=== PATIENT | male | born 1975 | race Caucasian/White ===

== ENCOUNTER 2021-10-25 11:41 | Emergency (ER) | payer MEDICAID, SELFPAY ==
--- NOTE | 2021-10-25 11:45 | RT.EKG_ITS ---
APPROVED REPORT Exam: Resting ECG Reason for Exam: chest pain Patient Location: E HR:59 bpm ECG Measurements Heart Rate 59 AXIS [place] 125 P 28 QRSd 90 QRS 63 QT 405 T 42 QTc 402 Conclusion Sinus bradycardia...rate< 60
[2021-10-25 11:51] VITALS: BP 163/80; PULSE 88; TEMP 36.6; O2SAT 99
--- NOTE | 2021-10-25 13:04 | ED.GENADUL_ITS ---
Discharge Plan Disposition Patient Disposition: HOME Condition: Improving Discharge Details Chief Complaint: Chest Pain Clinical Impression: Hypertension, Anxiety about health Primary Care Provider: Unknown,Unknown ED Provider: Shaan Smith Home Meds and New Rx's Prescriptions: No Action No Known Home Meds Discharge Instructions Instructions: DASH Eating Plan (ED), Hypertension (ED) Additional Instructions: We have asked our care management team to arrange a follow-up for you in primary care for recheck and to assess care. We have asked that the appointment be made towards the end of your workday. Home to rest. See enclosed instructions regarding the Dash diet and attempt to limit salt in the diet as well as begin and continue your stress reduction r outines. Your work-up today in the emergency [facility] included a complete blood count, comprehensive metabolic panel, and troponin. I have included copies of there is results for you and your records below. WBC 9.55 RBC 5.54 Hgb 15.9 Hct 47.1 MCV 85 MCH 28.7 MCHC 33.8 RDW 11.9 Plt Count 172 Sodium 139 Potassium 3.8 Chloride 105 Carbon Dioxide 25.6 Anion Gap 8.4 BUN 14 Creatinine 1.0 Estimated GFR/1.73 m2 >= 60.00 Glucose 125 H Calcium 8.8 Magnesium 2.0 Total Bilirubin 0.6 AST 19 ALT 39 Alkaline Phos 68 Troponin I < 50 Total Protein 7.8 Albumin 3.8 Medical Decision Making 46-year-old male who states she had a history of hypertension required long-term management while he was in [facility] for greater than 10 years. Now reports intermittent episodes of elevated blood pressure associated with stress over the past few days time. 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 This made him anxious and he sought evaluation in the ER. He arrives ER low pressure 163/80, otherwise unremarkable vital signs. The patient is quite anxious initially and states he does not want to have further work-up performed. Patient did allow phlebotomy and screening labs including troponin were obtained. The patient's labs are reassuring including a negative troponin. We will arrange outpatient follow-up for him and I will ask him to work on managing blood pressure in the meantime. He is given information regarding the Dash diet as well as stress reduction techniques for home. He is stable and appropriate to discharge this time. Lab Data Lab results reviewed: Yes I reviewed the patient's lab results. Labs: Laboratory Results - last 24 hr 10/25/21 10/25/21 13:16 13:16 WBC 9.55 RBC 5.54 Hgb 15.9 Hct 47.1 MCV 85 MCH 28.7 MCHC 33.8 RDW 11.9 Plt Count 172 MPV 11.1 H Immature Gran % 0.3 Neutrophils % 65.1 Lymphocytes % 27.7 Monocytes % 5.8 Eosinophils % 0.8 Basophils % 0.3 Nucleated RBC % 0.0 Absolute Neutrophils 6.21 Absolute Lymphocytes 2.65 Absolute Monocytes 0.55 Absolute Eosinophils 0.08 Absolute Basophils 0.03 Sodium 139 Potassium 3.8 Chloride 105 Carbon Dioxide 25.6 Anion Gap 8.4 BUN 14 Creatinine 1.0 Estimated GFR/1.73 m2 >= 60.00 Glucose 125 H Calcium 8.8 Magnesium 2.0 Total Bilirubin 0.6 AST 19 ALT 39 Alkaline Phosphatase 68 Troponin I < 50 Total Protein 7.8 Albumin 3.8 HPI General Mode of arrival: ambulatory . Date/Time Provider Initiated Documentation: 10/25/21 11:58 . Limitations to Documentation: no limitations . Information obtained by: patient . History of Present Illness 46 year old M presents to the emergency department with the chief complaint of Elevated blood pressure, chest tightness, described as moderate, Quality is described as dull, and is localized to the chest. Patient reports no radiation. Patient started experiencing this hour(s) and it has been constant. No relieving factors improve symptom(s), No exacerbating factors reported . Patient notes chest pain; denies shortness of breath and syncope. Patient did receive the following treatments prior to arrival, none Related Data Home Medications Medication Instructions Recorded Confirmed Unknown [No Known Home Meds] 10/25/21 10/25/21 Allergies Allergy/AdvReac Type Severity Reaction Status Date / Time codeine AdvReac Unknown Unverified 10/25/21 11:59 General Stated Complaint: Chest Pain FATMATA: 2 Review of Systems Narrative: 6 systems reviewed and otherwise negative PFSH All Active Problems (Updated 10/25/21 @ 13:47 by Shaan Smith MD) Hypertension (Chronic) Anxiety about health (Acute) Social History Smoking/Tobacco Use Status: Never Smoking risk assessment performed?: Yes Alcohol Intake: never Drug use: Daily Substance use type: marijuana Do you feel safe at home: Yes Do you feel safe in your relationship?: Yes Exam Narrative Exam Narrative: GEN: awake, alert, oriented 3. Pleasant, well groomed, interactive. HEAD: Normocephalic, atraumatic ENT: Mucous membranes moist, oropharynx unremarkable, External ear exam unremarkable EYES: PERRL, EOMI NECK: Full ROM, no TARIK, no menigismus CHEST/RESP: Nontender, clear to auscultation bilateral, no wheeze/rhonchi/rales CARDIOVASCULAR: RRR, no murmur, rub mike. 2+ Rad pulse bilateral ABDOMEN: Soft, nontender, no mass. +Bowel sounds EXT: Full ROM, no edema, no rash Neuro: Grossly normal neurologic exam, conversant, interactive. Psych: Speech fluent, thoughts congruent, affect anxious Course Vital Signs Vital signs: Vital Signs Temperature 36.6 C 10/25/21 11:51 Pulse 88 10/25/21 11:51 Blood Pressure 163/80 H 10/25/21 11:51 Pulse Oximetry 99 10/25/21 11:51 Temperature 36.6 C 10/25/21 11:51 Temperature Source Skin 10/25/21 11:51 Pulse 88 10/25/21 11:51 Respiratory Effort 10/25/21 12:04 Respiratory Depth Normal 10/25/21 12:00 Respiratory Pattern Normal 10/25/21 12:00 Blood Pressure 163/80 H 10/25/21 11:51 Blood Pressure Position Sitting 10/25/21 11:51 Pulse Oximetry 99 10/25/21 11:51 Oxygen Delivery Method Room Air 10/25/21 11:51 Oxygen Flow Rate 0 10/25/21 11:51 Pain Level 5 10/25/21 11:51 Comment 10/25/21 11:51
--- NOTE | 2021-10-25 13:21 | NUR.NOTE ---
Nursing Note: Referral given to Care Management for high blood pressure in 1 week. Would like end of working day appt if possible. Marah Reynolds
[2021-10-25 13:26] LABS: Abs Immature Grans 0.03 10^3/uL (0.0-0.06); Absolute Basophil Count 0.03 10^3/uL (0.0-0.2); Absolute Eosinophil Count 0.08 10^3/uL (0.0-0.7); Absolute Lymphocyte Count 2.65 10^3/uL (1.2-3.4); Absolute Monocyte Count 0.55 10^3/uL (0.1-0.8); Absolute Neutrophil Count 6.21 10^3/uL (1.2-6.7); Basophils % 0.3; Eosinophils % 0.8; HCT 47.1 % (40.0-50.0); HGB 15.9 g/dL (13.5-17.5); Immature Grans % 0.3; Lymphocytes % 27.7; MCH 28.7 pg (27.0-33.0); MCHC 33.8 % (32.0-36.0); MCV 85 fL (80-95); MPV 11.1 fL (8.0-11.0); Monocytes % 5.8; Neutrophils % 65.1; Platelet Count 172 10^3/uL (130-400); RBC 5.54 10^6/uL (4.36-5.78); RDW 11.9 % (11.8-14.1); RDW-SD 37.1 fL; WBC 9.55 10^3/uL (4.4-10.8)
--- NOTE | 2021-10-25 13:26 | NUR.NOTE ---
pt refused IV access but agreed to straight stick blood draw Nursing Note:
[2021-10-25 13:41] LABS: ALT 39 U/L (16-63); AST 19 U/L (15-37); Albumin 3.8 g/dL (3.4-5.0); Alkaline Phosphatase 68 U/L (46-116); Anion Gap 8.4 mmol/L (3-11); BUN 14 mg/dL (7-18); Bilirubin, Total 0.6 mg/dL (0.2-1.0); CO2 25.6 mmol/L (21.0-32.0); Calcium 8.8 mg/dL (8.5-10.1); Chloride 105 mmol/L (98-107); Glucose 125 mg/dL (74-106); Potassium 3.8 mmol/L (3.5-5.1); Sodium 139 mmol/L (136-145); Total Protein 7.8 g/dL (6.4-8.2); Troponin I < 50 ng/L (<or=60)
[2021-10-25 14:04] VITALS: BP 150/94; PULSE 69; RESP 16; TEMP 37.1; O2SAT 98
== END 2021-10-25 14:09 | disposition home or self-care (01) ==
PROVIDERS: Emergency Provider Emergency Medicine
DX: I10 Essential (primary) hypertension (principal); F41.9 Anxiety disorder, unspecified; R07.89 Other chest pain
CPT/HCPCS: 36415; 80053; 93005; 99283; 83735; 84484; 85025; 93010

== ENCOUNTER 2021-11-13 20:14 | Emergency (ER) | payer MEDICAID, SELFPAY ==
--- NOTE | 2021-11-13 20:15 | RT.EKG_ITS ---
APPROVED REPORT Exam: Resting ECG Reason for Exam: htn confusion Patient Location: E HR:79 bpm ECG Measurements Heart Rate 79 AXIS AR 130 P 27 QRSd 88 QRS 62 QT 371 T 36 QTc 424 Conclusion Sinus rhythm...normal P axis, V-rate 60- 99 sinus rhythm, normal axis, normal intervals, non ischemic
[2021-11-13 20:17] VITALS: BP 163/88; PULSE 82; RESP 14; TEMP 36.8; O2SAT 99
[2021-11-13 20:56] VITALS: BP 149/95; PULSE 86; O2SAT 96
--- NOTE | 2021-11-13 21:06 | ED.GENADUL_ITS ---
Discharge Plan Disposition Patient Disposition: HOME Condition: Stable Discharge Details Clinical Impression: Elevated blood pressure reading Primary Care Provider: Unknown,Unknown ED Provider: Merline Chow Home Meds and New Rx's Prescriptions: No Action No Known Home Meds Discharge Instructions Additional Instructions: Follow-up with your new doctor at your scheduled appointment you declined any additional laboratory evaluation today, I do recommend close outpatient reassessment Please return should you have new or worsening complaint Referrals: John Walker DO [OSTEOPATHIC DOCTOR] - 2 days Discharge Data Discharge Date/Time-TO BE ENTERED AT DEPARTURE: 11/13/21 21:18 Medical Decision Making Patient appears well, his EKG does not show evidence of acute abnormality Reviewed his diagnostic exam from 2 weeks prior to his arrival today and I do not see evidence of acute abnormality He states his presentation was quite He declined any additional diagnostic evaluation at this time. I did recommend blood work and patient again has declined I do not see any obvious evidence of central neurological process My suspicion for cardiac etiology is low although I did recommend troponin and labs Patient is fully alert, oriented, of decisional capacity He declines any additional intervention He has an appointment scheduled with new PCP on Sunday of this week, he is encouraged to keep this assessment Blood pressure at time of reassessment is 149/95 and patient has a nonfocal neurological exam. ECG Data Prior ECG tracings: available for review HPI General Date/Time Provider Initiated Documentation: 11/13/21 20:27 . HPI Narrative: This 46-year-old male with history of hypertension and anxiety presents with report of feeling tired and lightheaded. He states that he checked his blood pressure and it was elevated at 190/103, he checked it again and it was 185/107 and became concerned. He states he became very anxious and he felt even more tired when he presents here. He denies any chest pain or shortness of breath. He denies any strength or sensation change. He denies fever or chills. He denies any headache or vision change aside from some mild blurred vision. He denies any weakness or dizziness. He denies any complaints. He states he been on antihypertensives but in the past they have been ineffective., PCP on Sunday of this upcoming week reportedly. Denies any calf pain or swelling, recent flights, surgeries, or long drives. Smokes marijuana daily denies any tobacco or alcohol use. Denies any illicit drug use. Related Data Home Medications Medication Instructions Recorded Confirmed Unknown [No Known Home Meds] 10/25/21 10/25/21 Allergies Allergy/AdvReac Type Severity Reaction Status Date / Time codeine AdvReac Unknown Unverified 11/13/21 20:27 General Stated Complaint: GenMedical FATMATA: 3 Review of Systems All systems reviewed & are unremarkable except as noted in HPI and below PFSH All Active Problems (Updated 11/13/21 @ 21:08 by BLAIR Montoya) Hypertension (Chronic) Anxiety about health (Acute) Elevated blood pressure reading (Acute) Social History Smoking/Tobacco Use Status: Never Smoking risk assessment performed?: Yes Alcohol Intake: never Drug use: Daily Substance use type: marijuana Do you feel safe at home: Yes Do you feel safe in your relationship?: Yes Exam Const General: cooperative, comfortable and no acute distress HENMT Head: normal to inspection Mouth: oral mucosae normal Eyes Pupils: PERRL Resp Effort & Inspection: normal respiratory effort Auscultation: clear to auscultation bilaterally Cardio Rate: regular rate Rhythm: regular rhythm GI Inspection: normal to inspection Skin General skin exam: no rashes or lesions noted Neuro General: patient alert and patient oriented x3 Cranial Nerves: CN's II-XI intact bilaterally and tongue midline Cognition: normal cognition Speech: speech normal Gait: normal gait Motor: strength 5/5 throughout Sensory Exam: no sensory deficits noted Course Vital Signs Vital signs: Vital Signs Temperature 36.8 C 11/13/21 20:17 Pulse 82 11/13/21 20:17 Respiratory Rate 14 11/13/21 20:17 Blood Pressure 163/88 H 11/13/21 20:17 Pulse Oximetry 99 11/13/21 20:17 Temperature 36.8 C 11/13/21 20:17 Temperature Source Temporal Artery Scan 11/13/21 20:17 Pulse 86 11/13/21 20:56 Respiratory Rate 14 11/13/21 20:17 Respiratory Effort Non-Labored 11/13/21 20:32 Respiratory Depth Normal 11/13/21 20:32 Respiratory Pattern Normal 11/13/21 20:32 Blood Pressure 149/95 H 11/13/21 20:56 Blood Pressure Mean 108 11/13/21 20:56 Blood Pressure Position Sitting 11/13/21 20:17 Pulse Oximetry 96 11/13/21 20:56 Oxygen Delivery Method Room Air 11/13/21 20:17 Oxygen Flow Rate 0 11/13/21 20:17
== END 2021-11-13 21:18 | disposition home or self-care (01) ==
PROVIDERS: Emergency Provider Physician Assistant
DX: I10 Essential (primary) hypertension (principal); R41.0 Disorientation, unspecified
CPT/HCPCS: 93005; 99283; 93010

== ENCOUNTER 2022-08-31 15:14 | Emergency (ER) | payer OTHER, SELFPAY ==
[2022-08-31 15:15] VITALS: BP 158/102; PULSE 93; RESP 20; TEMP 36.6; O2SAT 97
--- NOTE | 2022-08-31 15:30 | DI.RAD_ITS ---
Exam(s) XR SHOULDER RT COMPLETE 2+V EXAM: XR SHOULDER RT COMPLETE 2+V CLINICAL HISTORY: Trauma. TECHNIQUE: 2D digital imaging was performed. COMPARISON: No exams were available for comparison FINDINGS: Five views: No evidence of acute fracture or dislocation or abnormal soft tissue calcifications. Subacromial spa ce unremarkable. AC joint unremarkable. Clavicle unremarkable. Coracoid process unremarkable. Mild degenerative changes noted in the inferior aspect of glenohumeral joint. IMPRESSION: No significant acute osseous findings in the right shoulder. DATA REPOSITORY: RADIATION DOSE DELIVERED:
[2022-08-31] MEDS: Ibuprofen 800 MG TAB PO (15:38)
--- NOTE | 2022-08-31 15:45 | DI.RAD_ITS ---
Exam(s) XR RIBS RT W PA LAT CHEST EXAM: XR RIBS RT W PA LAT CHEST CLINICAL HISTORY: R upper back pain, shoulder crushed, r/o rib fx TECHNIQUE: 2D digital imaging was performed. COMPARISON: No exams were available for comparison FINDINGS: RIBS 3 VIEWS-right There are no obvious acute rib fractures evident. No lytic rib lesions identified. CXR- 2 VIEWS: No lung contusion or pneumothorax. There is no pleural effusion evident. Heart size is normal and there is no significant mediastinal widening. IMPRESSION: 1. No obvious rib fractures evident. Also no significant rib lesions. 2. No ipsilateral lung nor pleural abnormality evident. No pneumothorax. DATA REPOSITORY: RADIATION DOSE DELIVERED:
--- NOTE | 2022-08-31 15:58 | ED.GENADUL_ITS ---
Discharge Plan Disposition Patient Disposition: Home Condition: Stable Discharge Details Clinical Impression: Crushing injury of right shoulder, Contusion of right shoulder, Hypertension Primary Care Provider: John Walker ED Provider: Tatyana Garza Home Meds and New Rx's Prescriptions: Continued lisinopril 10 mg tablet 10 mg PO DAILY Qty: 60 0RF Discharge Instructions Instructions: Contusion in Adults (ED), Hypertension (ED) Additional Instructions: Your x-rays today are reassuring and show no evidence of acute fracture or dislocation. Your exam is consistent with a contusion and crush injury. Keep the area clean and dry. Apply topical antibiotic ointment if you notice any increase in redness, swelling or pain. Take 600 mg of ibuprofen every 6 hours as needed and directed for pain. Take the Vicodin as needed and directed for pain not relieved with ibuprofen. You can also take Tylenol for pain relief as directed. Take caution while taking the Tylenol as the Vicodin contains hydrocodone plus Tylenol. Your blood pressure was also noted to be high today. Be sure to take your lisinopril as directed and follow-up with your primary care doctor for continued management of your high blood pressure. Follow-up with your primary care doctor in 1 week and for referral to orthopedics if your symptoms do not improve or worsen. Return to the emergency department with any worsening or new concerning symptoms. Referrals: Matthew Montes MD [ [facility] STAFF PHYSICIAN] - Discharge Data Discharge Date/Time-TO BE ENTERED AT DEPARTURE: 08/31/22 17:57 Discharge Physician: Tatyana Garza Medical Decision Making 47-year-old male presents with right shoulder pain after crushed by a lift gate at work weighing approximately 1000 to 1500 pounds prior to arrival. Denies head injury, chest pain, abdominal pain or other significant extremity pain or injury. Patient has ecchymosis, tenderness and edema noted to the right superior shoulder trapezius region. Exam appears consistent more with crush injury and there does not appear to be any significant open wound. There is limitation of range of motion at the shoulder secondary to pain in this area. He is also tender to the right lateral superior back overlying superior scapula. There is no tenderness over clavicle or right humerus. Remainder right upper extremity appears normal to inspection without deformity. He is neurovascular intact. Remainder of chest and abdomen nontender. Normal range of motion of left upper and bilateral lower extremities without pain or significant trauma. Patient given a dose of ibuprofen on arrival. We will give a dose of Vicodin for pain relief. He states he has had a history of allergy to codeine but has tolerated Vicodin in the past. Will refer for right shoulder and right rib and chest x-ray. X-rays reviewed and negative. Patient feels much better. He declines sling. Advised on the importance of ice, ibuprofen, Tylenol and will send with 4 tabs of Vicodin for pain relief. Advised to follow up with the primary care doctor for re-evaluation. Usual and customary return precautions given prior to discharge. Patient's blood pressure was also noted to be high today. He states he does not take his lisinopril regularly. He is advised to continue to take it as directed and follow-up with his primary care doctor for blood pressure management. Medical Records Medical records reviewed: Yes I reviewed the patient's medical records. Imaging Data Radiologic Study: Radiologist's impression: XR SHOULDER RT COMPLETE 2+V CLINICAL HISTORY: ? Trauma. ? TECHNIQUE:? 2D digital imaging was performed. COMPARISON:? No exams were available for comparison FINDINGS: Five views: No evidence of acute fracture or dislocation or abnormal soft tissue calcifications.? Subacromial space unremarkable.? AC joint unremarkable.? Clavicle unremarkable.? Coracoid process unremarkable. Mild degenerative changes noted in the inferior aspect of glenohumeral joint. IMPRESSION: No significant acute osseous findings in the right shoulder. XR RIBS RT W PA ? LAT CHEST CLINICAL HISTORY:? R upper back pain, shoulder crushed, r/o rib fx TECHNIQUE:? 2D digital imaging was performed. COMPARISON:? No exams were available for comparison FINDINGS: RIBS 3 VIEWS-right There are no obvious acute rib fractures evident.? No lytic rib lesions identified.? CXR- 2 VIEWS: No lung contusion or pneumothorax.? There is no pleural effusion evident. Heart size is normal and there is no significant mediastinal widening. IMPRESSION: 1. No obvious rib fractures evident.? Also no significant rib lesions.? 2. No ipsilateral lung nor pleural abnormality evident.? No pneumothorax. HPI General Mode of arrival: ambulatory . Date/Time Provider Initiated Documentation: 08/31/22 15:29 . Limitations to Documentation: no limitations . Information obtained by: patient . HPI Narrative: Patient is a 47-year-old male presents for right shoulder pain after hand under a lift gate of a truck at work prior to arrival. Patient states their approximate weight from his injury was 1000 to 1500 pounds. Patient states his pain is mainly in his right upper shoulder. Patient states he also scraped his right knee but denies any significant pain in this area. He denies any head injury, neck pain, difficulty breathing, abdominal pain or other extremity pain or injury. Related Data Home Medications Medication Instructions Recorded Confirmed lisinopril 10 mg tablet 10 mg PO DAILY #60 tabs 11/15/21 11/15/21 Previous Rx's Medication Instructions Recorded lisinopril 10 mg tablet 10 mg PO DAILY #60 tabs 11/15/21 Allergies Allergy/AdvReac Type Severity Reaction Status Date / Time codeine AdvReac Unknown Unverified 11/15/21 11:33 General Stated Complaint: Trauma FATMATA: 3 Review of Systems All systems reviewed & are unremarkable except as noted in HPI and below Constitutional Constitutional: Reports as per HPI, Denies chills and Denies fever(s) Eyes Eyes: Denies blurry vision ENT Ears, Nose, Mouth, and Throat: Denies dizziness, Denies sore throat and Denies throat swelling Cardiovascular Cardiovascular: Denies chest pain and Denies dyspnea Respiratory Respiratory: Denies cough and Denies dyspnea Gastrointestinal Gastrointestinal: Denies abdominal pain, Denies diarrhea and Denies vomiting Genitourinary Genitourinary: Denies hematuria and Denies dysuria Musculoskeletal Musculoskeletal: Denies back pain and Denies numbness Comments: R shoulder/upper back pain Integumentary/Breasts Skin/Breast: Denies lesions and Denies rash Neurologic Neurologic: Denies dizziness, Denies localized weakness and Denies numbness Allergic/Immunologic Allergic/Immunologic: Denies throat swelling [facility] All Active Problems (Updated 08/31/22 @ 17:48 by Tatyana Garza DO) Hypertension (Chronic) Crushing injury of right shoulder (Acute) Contusion of right shoulder (Acute) Medical History (Updated 08/31/22 @ 17:48 by Tatyana Garza DO) Hypertension Surgical History (Updated 08/31/22 @ 15:59 by Tatyana Garza DO) No significant past surgical history Social History Smoking/Tobacco Use Status: Never Smoking risk assessment performed?: Yes Alcohol Intake: never Drug use: Daily Substance use type: marijuana Do you feel safe at home: Yes Do you feel safe in your relationship?: Yes Exam Const General: cooperative, healthy appearing and no acute distress Orientation: alert, awake and oriented x3 HENMT Head: normal to inspection Face and sinus: normal facial exam Eyes General: appearance normal, both eyes and all related structures Pupils: PERRL EOM: EOM intact bilaterally Neck Neck: normal visual inspection and No submandibular swelling Lymphatic: no lymphadenopathy noted Chest Chest: normal inspection of the chest and no tenderness Resp Effort & Inspection: normal respiratory effort and able to speak in complete sentences Auscultation: clear to auscultation bilaterally Cardio Rate: regular rate Rhythm: regular rhythm GI Inspection: normal to inspection Palpation: soft, not firm, not rigid and nontender Auscultation: normal bowel sounds Male General Exam: Yes normal external exam Back/Spine/Pelvis Thoracic/Lumbar Spine: thoracic and lumbar spine normal to inspection Pelvis: no pain with anterior-posterior compression Skin General skin exam: no rashes or lesions noted Neuro General: patient alert, patient awake and patient oriented x3 Cognition: normal cognition Speech: speech normal Motor: muscle tone normal throughout Sensory Exam: no sensory deficits noted Extrem General: capillary refill normal, no calf tenderness bilaterally and no edema Shoulder/upper arm images: 1. Superficial linear ecchymosis and tenderness with mild to moderate edema located superior right shoulder. There is limitation of range of motion secondary to pain. 2. Tenderness to palpation without crepitus or step-off. No open wounds noted Other: Limited range of motion at right shoulder secondary to pain. There is no significant tenderness to palpation to the right upper arm or right anterior shoulder. No obvious deformity noted to the right shoulder. No significant tenderness along the right clavicle. Remainder of right upper extremity appears normal to inspection without significant pain at right elbow, right wrist or hand. Right radial ulnar pulses intact. Normal capillary refill right hand. Normal range of motion to left upper and bilateral lower extremities. There is a superficial abrasion to the right lateral anterior knee but no pain with range of motion in the right knee and no evidence of edema, ecchymosis, tenderness or deformity. Psych Appearance: grossly normal Mental Status: mental status grossly normal Speech and Movement: speech and movement normal Affect: normal affect Course Vital Signs Vital signs: Vital Signs Temperature 97.9 F 08/31/22 15:15 Pulse 93 H 08/31/22 15:15 Respiratory Rate 20 08/31/22 15:15 Blood Pressure 158/102 H 08/31/22 15:15 Pulse Oximetry 97 08/31/22 15:15 Temperature 97.9 F 08/31/22 15:15 Temperature Source Oral 08/31/22 15:15 Pulse 93 H 08/31/22 15:15 Respiratory Rate 20 08/31/22 15:15 Blood Pressure 158/102 H 08/31/22 15:15 Blood Pressure Position Sitting 08/31/22 15:15 Pulse Oximetry 97 08/31/22 15:15 Oxygen Delivery Method Room Air 08/31/22 15:15 Oxygen Flow Rate 0 08/31/22 15:15 Pain Level 10 08/31/22 15:38
[2022-08-31] MEDS: HYDROcodone 5/Acetaminophen 325 TAB PO (16:04)
[2022-08-31 17:39] VITALS: BP 153/102; PULSE 74; RESP 18; TEMP 37.4; O2SAT 95
== END 2022-08-31 17:57 | disposition home or self-care (01) ==
LOC: ER 18:02
PROVIDERS: Emergency Provider Physician Assistant; PCP Family Medicine
DX: S40.011A Contusion of right shoulder, initial encounter; I10 Essential (primary) hypertension; W23.0XXA Caught, crushed, jammed, or pinched between moving objects, initial encounter; Y99.0 Civilian activity done for income or pay
CPT/HCPCS: 99284; 71046; 71100; 73030

== ENCOUNTER 2022-09-20 14:19 | Outpatient (CLI) | payer MEDICAID, SELFPAY ==
--- NOTE | 2022-09-20 14:15 | RT.EKG_ITS ---
APPROVED REPORT Exam: Resting ECG Reason for Exam: Elevated blood pressure, left arm numbness Patient Location: O HR:69 bpm ECG Measurements Heart Rate 69 AXIS [place] 118 P 24 QRSd 89 QRS 63 QT 397 T 34 QTc 426 Conclusion Sinus rhythm...normal P axis, V-rate 50- 99 Borderline short WV interval...WV int <120mS Otherwise normal ECG
== END 2022-09-20 14:20 | disposition home or self-care (01) ==
LOC: DI.KIM 14:20
PROVIDERS: PCP Family Medicine; Visit Provider Nurse Practitioner Family
DX: R03.0 Elevated blood-pressure reading, without diagnosis of hypertension (principal); R20.0 Anesthesia of skin
CPT/HCPCS: 93010

== ENCOUNTER 2022-09-22 00:44 | Outpatient (CLI) | payer MEDICAID, SELFPAY ==
--- NOTE | 2022-09-22 08:29 | DI.RAD_ITS ---
Exam(s) XR THORACIC SPINE COMPLETE EXAM: XR THORACIC SPINE COMPLETE CLINICAL HISTORY: recent crush injury,THORACIC BACK PAIN, M54.6. TECHNIQUE: 2D digital imaging was performed. Three views. COMPARISON: No exams were available for comparison FINDINGS: BONES: There is no fracture or destructive lesion. The vertebral bodies and posterior elements are un remarkable. ALIGNMENT: Within normal limits. DISKS: Interverebral disc spaces are maintained. There are small endplate osteophytes. SOFT TISSUE: Visualized lungs are clear. IMPRESSION: Unremarkable radiographs of the thoracic spine. DATA REPOSITORY: RADIATION DOSE DELIVERED:
== END 2022-09-22 01:04 ==
LOC: DI 00:44
PROVIDERS: PCP Family Medicine; Visit Provider Nurse Practitioner Family
DX: M54.6 Pain in thoracic spine (principal)
CPT/HCPCS: 72072

== ENCOUNTER 2022-09-28 07:55 | Emergency (ER) | payer MEDICAID, SELFPAY ==
[2022-09-28 07:59] VITALS: BP 156/96; PULSE 67; RESP 15; TEMP 36.7; O2SAT 98
--- NOTE | 2022-09-28 08:14 | W.ED.GENAD ---
Discharge Plan Disposition Patient Disposition: Home Discharge Details Clinical Impression: Degenerative joint disease (DJD) of lumbar spine, Lumbosacral strain Primary Care Provider: John Walker ED Provider: Leticia Quiñonez Home Meds and New Rx's Prescriptions: New oxycodone-acetaminophen [Percocet] 5-325 mg tablet 1 tab PO Q8H PRN (Reason: pain) Qty: 3 0RF Rx Instructions: Take 1 tablet every 8 hours by mouth as needed for moderate to severe pain cyclobenzaprine 10 mg tablet 10 mg PO TID PRN (Reason: muscle spasm) Qty: 10 0RF No Action losartan 25 mg tablet 25 mg PO DAILY Qty: 90 3RF Patient Comments: no longer taking 09/28/22 CT Discharge Instructions Instructions: Low Back Strain (ED) Additional Instructions: X-ray shows some degenerative changes of your lower lumbar spine. I do suspect that you have muscle spasm in muscle strain to this area which is very common. Alternate ice and heat. Take medications as directed. No driving or operating heavy machinery while taking the medication. Take this with food. Return to the ER or be seen sooner for any loss of bowel or bladder control, numbness tingling in your legs or groin area. Follow up with primary care provider in 3-5 days. Return to ED sooner if any worsening or concerns. Increase oral fluids. Referrals: John Walker DO [Primary Care Provider] - 3 days Discharge Data Discharge Date/Time-TO BE ENTERED AT DEPARTURE: 09/28/22 09:36 Medical Decision Making 47-year-old male presents to the ER with a chief complaint of lower back pain and spasm which worsened this morning after getting out of bed. Reports approximately 3 weeks ago he was seen here after a crush type injury to his right shoulder. He denies any lower back injuries. He denies radiation into his buttocks or legs however he does report some radiation of pain around to his pelvis. He does have paraspinous tenderness and muscle spasm on the right with palpation. No midline tenderness. L-spine x-ray ordered, lidocaine patch IM Toradol and Norflex muscle relaxer. X-rays show degenerative changes L4-L5 and S1. There is mild narrowing at T12-L1 and 2. I did discuss results of x-ray with patient. He reports that his pain is getting worse. Lidocaine patch Toradol and Norflex have done little to relieve his pain. Percocet 1 tablet ordered and 1 tablet to go. Patient to be discharged home with home care. Instructed to alternate ice and heat, take the muscle relaxers and pain medications as directed. Discussed strict return instructions and follow-up care. No evidence of cauda equina, patient is ambulatory without difficulty here in the department. This text was generated using [employer] system, please disregard any oddities of phrase or misspellings. Imaging Data Radiologic Study: Imaging: X-Ray Radiologist's impression: COMPARISON:? No exams were available for comparison FINDINGS: BONES: No fracture or destructive lesion. Small endplate osteophytes are seen at multiple levels of the lumbar spine.? There are degenerative changes of the facets at L4-5 and L5-S1. DISKS: There is mild narrowing at T12-L1 and L1-L2. ALIGNMENT: Lumbar spinal alignment is within normal limits. No spondylolysis or spondylolisthesis. SOFT TISSUE: Normal. IMPRESSION: Mild degenerative changes of the lumbar spine.? HPI General Mode of arrival: ambulatory. Date/Time Provider Initiated Documentation: 09/28/22 08:04. Limitations to Documentation: no limitations. Information obtained by: patient, RN notes reviewed and old records reviewed. HPI Narrative: 47-year-old male presents to the ER with a chief complaint of lower back pain and spasm which worsened this morning after getting out of bed. Reports approximately 3 weeks ago he was seen here after a crush type injury to his right shoulder. He denies any lower back injuries. He denies radiation into his buttocks or legs however he does report some radiation of pain around to his pelvis. He does have paraspinous tenderness and muscle spasm on the right with palpation. No midline tenderness. He denies any loss of bowel or bladder control no saddle anesthesia no numbness or tingling. No other associated symptoms. Denies any problems urinating. Related Data Home Medications Medication Instructions Recorded Confirmed losartan 25 mg tablet 25 mg PO DAILY #90 tab-caps 09/20/22 09/20/22 cyclobenzaprine 10 mg tablet 10 mg PO TID PRN muscle spasm #10 09/28/22 tabs oxycodone-acetaminophen 5 mg-325 1 tab PO Q8H PRN pain #3 tabs 09/28/22 mg tablet (Percocet) Previous Rx's Medication Instructions Recorded losartan 25 mg tablet 25 mg PO DAILY #90 tab-caps 09/20/22 cyclobenzaprine 10 mg tablet 10 mg PO TID PRN muscle spasm #10 09/28/22 tabs oxycodone-acetaminophen 5 mg-325 1 tab PO Q8H PRN pain #3 tabs 09/28/22 mg tablet (Percocet) Allergies Allergy/AdvReac Type Severity Reaction Status Date / Time codeine AdvReac Unknown Unverified 09/28/22 08:05 lisinopril AdvReac Other (See Verified 09/28/22 08:05 Comment) General Stated Complaint: Nk/Back Pain FATMATA: 3 Review of Systems All systems reviewed & are unremarkable except as noted in HPI and below Musculoskeletal Musculoskeletal: Reports as per HPI, Reports back pain, Denies numbness, Denies radiating pain into limb and Reports stiffness Neurologic Neurologic: Denies numbness PFSH All Active Problems (Updated 09/28/22 @ 09:25 by Leticia Quiñonez NP) Degenerative joint disease (DJD) of lumbar spine (Acute) Lumbosacral strain (Acute) Hypertension (Chronic) Crushing injury of right shoulder (Acute) Contusion of right shoulder (Acute) Medical History Hypertension Surgical History No significant past surgical history Social History Smoking/Tobacco Use Status: Never Smoking risk assessment performed?: Yes Alcohol Intake: never Drug use: Daily Substance use type: marijuana Do you feel safe at home: Yes Do you feel safe in your relationship?: Yes Exam Back/Spine/Pelvis Back: back tenderness Cervical Spine: cervical ROM normal Thoracic/Lumbar Spine: thoraco-lumbar spasm Pelvis: no buttock swelling Back/spine/pelvis image: 1. Tenderness and muscle spasm with palpation Neuro Cognition: normal cognition Speech: speech normal Gait: normal gait Motor: muscle tone normal throughout Sensory Exam: no sensory deficits noted Course Vital Signs Vital signs: Vital Signs Temperature 36.7 C 09/28/22 07:59 Pulse 67 09/28/22 07:59 Respiratory Rate 15 09/28/22 07:59 Blood Pressure 156/96 H 09/28/22 07:59 Pulse Oximetry 98 09/28/22 07:59 Temperature 36.7 C 09/28/22 07:59 Temperature Source Oral 09/28/22 07:59 Pulse 67 09/28/22 07:59 Respiratory Rate 15 09/28/22 07:59 Respiratory Effort Normal 09/28/22 08:02 Blood Pressure 156/96 H 09/28/22 07:59 Blood Pressure Position Sitting 09/28/22 07:59 Pulse Oximetry 98 09/28/22 07:59 Oxygen Delivery Method Room Air 09/28/22 07:59 Oxygen Flow Rate 0 09/28/22 07:59 Pain Level 10 09/28/22 08:02
--- NOTE | 2022-09-28 08:36 | DI.RAD_ITS ---
Exam(s) XR LUMBAR SPINE COMPLETE EXAM: XR LUMBAR SPINE COMPLETE CLINICAL HISTORY: Low back pain. TECHNIQUE: 2D digital imaging was performed of the lumbar spine. Five images were obtained. AP, la teral, right oblique, left oblique and L5-S1 spot views were obtained. COMPARISON: No exams were available for comparison FINDINGS: BONES: No fracture or destructive lesion. Small endplate osteophytes are seen at multiple levels of t he lumbar spine. There are degenerative changes of the facets at L4-5 and L5-S1. DISKS: There is mild narrowing at T12-L1 and L1-L2. ALIGNMENT: Lumbar spinal alignment is within normal limits. No spondylolysis or spondylolisthesis. SOFT TISSUE: Normal. IMPRESSION: Mild degenerative changes of the lumbar spine. DATA REPOSITORY: RADIATION DOSE DELIVERED:
[2022-09-28] MEDS: Orphenadrine 60 MG/2 ML VIAL IM (08:37)
[2022-09-28] MEDS: Ketorolac 60 MG/2 ML VIAL IM (08:37)
[2022-09-28] MEDS: Lidocaine 5% Patch 1 PATCH TP (08:37)
[2022-09-28] MEDS: oxyCODONE 5 mg/Acetaminophen 325 mg TAB 1 TAB PO ×2 (09:29)
[2022-09-28] MEDS: Cyclobenzaprine 10 MG TAB, 3 TABS/BTL PO (09:30)
== END 2022-09-28 09:36 | disposition home or self-care (01) ==
PROVIDERS: Emergency Provider Registered Nurse Emergency; PCP Family Medicine
DX: M51.36 Other intervertebral disc degeneration, lumbar region (principal); S39.012A Strain of muscle, fascia and tendon of lower back, initial encounter; X58.XXXA Exposure to other specified factors, initial encounter
CPT/HCPCS: 96372; 99284; J2360; 72110; J1885